=== PATIENT | female | born 1935 | race Caucasian/White ===

== ENCOUNTER 2020-04-13 22:36 | Emergency (ER) | payer MEDICARE ==
[~2020-04-13] VITALS: Ht 147.3 cm; Wt 51.3 kg
[2020-04-13 23:04] LABS: BASOPHILS ABSOLUTE AUTO 0.04 K/mm3 (0.00-0.23); BASOPHILS PERCENT AUTO 1 % (0-2); EOSINOPHILS ABSOLUTE AUTO 0.18 K/mm3 (0.00-0.68); EOSINOPHILS PERCENT AUTO 2 % (0-6); Hemoglobin 8.7 g/dL (11.5-16.0); IMMATURE GRAN ABSOLUTE AUTO 0.05 K/mm3 (0.00-0.10); IMMATURE GRAN PERCENT AUTO 1 % (0-1); LYMPHOCYTES ABSOLUTE AUTO 1.13 K/mm3 (0.84-5.20); LYMPHOCYTES PERCENT AUTO 13 % (21-46); MONOCYTES ABSOLUTE AUTO 0.89 K/mm3 (0.16-1.47); MONOCYTES PERCENT AUTO 10 % (4-13); Mean Corpuscular HGB 30.9 pg (26.0-34.0); Mean Corpuscular HGB Conc 31.1 g/dL (31.5-36.5); Mean Corpuscular Volume 99 fL (80-100); Mean Platelet Volume 8.7 fL (9.1-12.4); NEUTROPHILS PERCENT AUTO 73 % (41-73); Platelet Count 203 K/mm3 (150-400); RDW Coefficient Variation 15.8 % (11.7-14.2); RDW Standard Deviation 56.8 fL (35.1-46.3); Red Blood Cell Count 2.82 M/mm3 (3.80-5.20); White Blood Cell Count 8.59 K/mm3 (4.00-11.30)
[2020-04-13 23:23] LABS: Albumin, Blood 2.7 g/dL (3.4-5.0); Albumin/Globulin Ratio 0.7 (0.8-1.8); Bilirubin, Total 0.2 mg/dL (0.1-1.0); Bun/Creatinine Ratio 12.3 (12.0-20.0); Calcium, Blood 9.6 mg/dL (8.5-10.1); Creatinine, Blood 1.79 mg/dL (0.40-1.00); Globulin, Blood 4.1 g/dL (2.2-4.0); Potassium, Blood 3.2 mmol/L (3.5-5.5); Total Protein, Blood 6.8 g/dL (6.4-8.2)
[2020-04-14] MEDS ORDERED: DONEPEZIL HCL10 M1 PO (00:18)
[2020-04-14] MEDS ORDERED: ZOFRAN4 MG PO (00:19)
[2020-04-14] MEDS ORDERED: Ventolin/Prove6.7 GM (00:19)
[2020-04-14] MEDS ORDERED: FLOVENT HFA12 GM (00:19)
[2020-04-14] MEDS ORDERED: Rena-Vite Tabl0.8 MG PO (00:20)
[2020-04-14] MEDS ORDERED: CARVEDILOL25 MG PO (00:20)
[2020-04-14] MEDS ORDERED: ZOLOFT100 M3 PO (00:20)
[2020-04-14] MEDS ORDERED: FUROSEMIDE40 MG PO (00:20)
[2020-04-14] MEDS ORDERED: SIMV10 PO (00:20)
[2020-04-14] MEDS ORDERED: OMEPRAZOLE MAGN20 M1 PO (00:21)
[2020-04-14] MEDS ORDERED: ACET500 PO (00:22)
[2020-04-14] MEDS ORDERED: LOPE2C (00:22)
[2020-04-14] MEDS ORDERED: FELODIPINE ER10 MG PO (00:22)
[2020-04-14 00:26] LABS: Source, Urine Clean Catch
[2020-04-14 00:32] LABS: Bilirubin, Urine Neg (Neg); Blood, Urine Neg (Neg); Glucose Qualitative, Urine Neg (Neg); Ketones, Urine Neg (Neg); Leukocyte Esterase, Urine 3+ (Neg); Nitrite, Urine Neg (Neg); Protein, Urine 4+ (Neg); Urobilinogen, Urine NORM (Normal)
[2020-04-14 00:33] LABS: Appearance, Urine Clear (Clear); Color, Urine Yellow (P-Yellow)
[2020-04-14 00:38] LABS: Bacteria Many /hpf; Red Blood Cells, Urine 0-2 /hpf (0-2); Squamous Epithelial Cells Few /hpf (Few)
== END 2020-04-14 00:50 | disposition home or self-care (01) ==
LOC: ER 22:36
PROVIDERS: Physician Assistant
DX: E87.6 Hypokalemia (principal); E11.65 Type 2 diabetes mellitus with hyperglycemia; E11.22 Type 2 diabetes mellitus with diabetic chronic kidney disease; N18.6 End stage renal disease; Z88.0 Allergy status to penicillin; Z88.1 Allergy status to other antibiotic agents; Z79.899 Other long term (current) drug therapy
CPT/HCPCS: 70450; 80053; 81001; 85025; 87086; 93005; 93010; 99285-25

== ENCOUNTER 2020-05-03 18:32 | Inpatient (IN) | payer MEDICARE ==
[~2020-05-03] VITALS: Ht 147.3 cm; Wt 53.1 kg
[~2020-05-03 18:32] MED LIST: ACET500 PO; LOPE2C
[2020-05-03 19:15] LABS: BASOPHILS ABSOLUTE AUTO 0.04 K/mm3 (0.00-0.23); BASOPHILS PERCENT AUTO 0 % (0-2); EOSINOPHILS ABSOLUTE AUTO 0.17 K/mm3 (0.00-0.68); EOSINOPHILS PERCENT AUTO 2 % (0-6); Hematocrit 28.6 % (33.0-51.0); Hemoglobin 8.9 g/dL (11.5-16.0); IMMATURE GRAN ABSOLUTE AUTO 0.07 K/mm3 (0.00-0.10); IMMATURE GRAN PERCENT AUTO 1 % (0-1); LYMPHOCYTES ABSOLUTE AUTO 0.97 K/mm3 (0.84-5.20); LYMPHOCYTES PERCENT AUTO 9 % (21-46); MONOCYTES ABSOLUTE AUTO 0.87 K/mm3 (0.16-1.47); MONOCYTES PERCENT AUTO 8 % (4-13); Mean Corpuscular HGB 30.7 pg (26.0-34.0); Mean Corpuscular HGB Conc 31.1 g/dL (31.5-36.5); Mean Corpuscular Volume 99 fL (80-100); Mean Platelet Volume 9.1 fL (9.1-12.4); NEUTROPHILS ABSOLUTE AUTO 8.61 K/mm3 (1.96-9.15); NEUTROPHILS PERCENT AUTO 80 % (41-73); Platelet Count 232 K/mm3 (150-400); RDW Coefficient Variation 14.4 % (11.7-14.2); RDW Standard Deviation 52.2 fL (35.1-46.3); White Blood Cell Count 10.73 K/mm3 (4.00-11.30)
[2020-05-03 19:30] LABS: Albumin/Globulin Ratio 0.8 (0.8-1.8); Bilirubin, Total 0.3 mg/dL (0.1-1.0); Bun/Creatinine Ratio 10.7 (12.0-20.0); Calcium, Blood 9.4 mg/dL (8.5-10.1); Creatinine, Blood 2.06 mg/dL (0.40-1.00); Potassium, Blood 3.5 mmol/L (3.5-5.5); Troponin I 0.019 ng/mL (0.000-0.040)
[2020-05-03] MEDS ORDERED: ONDA4ODT PO (19:36)
[2020-05-03] MEDS ORDERED: FUROSEMIDE40 MG PO (19:36)
[2020-05-03] MEDS ORDERED: OMEPRAZOLE MAGN20 M1 PO (19:37)
[2020-05-03] MEDS ORDERED: DONEPEZIL HCL10 M1 PO (19:38)
[2020-05-03] MEDS ORDERED: Ventolin/Prove6.7 GM INH (19:38)
[2020-05-03] MEDS ORDERED: FLOVENT HFA12 GM INH (19:39)
[2020-05-03] MEDS ORDERED: Rena-Vite Tabl0.8 MG PO (19:40)
[2020-05-03] MEDS ORDERED: CARVEDILOL25 MG PO (19:40)
[2020-05-03] MEDS ORDERED: Simvastatin10 MG PO (19:40)
[2020-05-03] MEDS ORDERED: SERT100 PO (19:41)
[2020-05-03] MEDS ORDERED: FELODIPINE ER5 MG PO (20:48)
[2020-05-03] MEDS ORDERED: FISH OIL 1,2001 EAC7 PO (20:49)
[2020-05-03] MEDS ORDERED: FLONASE ALLERG9.9 ML (20:50)
[2020-05-03] MEDS ORDERED: LATA.005SO BOTHEYES (20:50)
[2020-05-03] MEDS ORDERED: DORZOLAMIDE 2%10 M1 BOTHEYES (20:52)
[2020-05-03] MEDS ORDERED: BRIMONIDINE EYE DROP BOTHEYES (20:53)
[2020-05-04 02:55] LABS: Hemoglobin 8.2 g/dL (11.5-16.0); Mean Corpuscular HGB 30.9 pg (26.0-34.0); Mean Corpuscular HGB Conc 31.5 g/dL (31.5-36.5); Mean Corpuscular Volume 98 fL (80-100); Mean Platelet Volume 8.5 fL (9.1-12.4); Platelet Count 193 K/mm3 (150-400); RDW Coefficient Variation 14.3 % (11.7-14.2); RDW Standard Deviation 51.4 fL (35.1-46.3); Red Blood Cell Count 2.65 M/mm3 (3.80-5.20); White Blood Cell Count 7.51 K/mm3 (4.00-11.30)
[2020-05-04 03:13] LABS: Bun/Creatinine Ratio 10.4 (12.0-20.0); Calcium, Blood 9.6 mg/dL (8.5-10.1); Creatinine, Blood 2.69 mg/dL (0.40-1.00); Potassium, Blood 3.5 mmol/L (3.5-5.5); Troponin I 0.017 ng/mL (0.000-0.040)
--- NOTE | 2020-05-04 06:10 | NUR ---
SHIFT SUMMARY PT RESTED MOST OF NIGHT AFTER BEING ADMITTED TO PCU ROOM. ALERT AND ORIENTED - FAMILY INSISTED ON STAYING WITH AUNT. SHE STATES SHE IS HER CAREGIVER. TELE - NSR. SATS >90% ON 2LNC. DOES PRODUCE SOME URINE - MINIMAL VOIDS. NO BM. VERY WEAK , NEEDS 1-2 PERSON ASSIST. NEEDS ECHO TODAY. VSS. CALL LIGHT WITHIN REACH, BED IN LOWEST POSITION. WILL CONTINUE TO MONITOR.
[2020-05-04 09:25] LABS: Influenza A, PCR Negative (NEGATIVE); Influenza B, PCR Negative (NEGATIVE); Resp Syncytial Virus, PCR Negative (NEGATIVE); SARS-Cov-2 (COVID-19) PCR, MMC Negative (NEGATIVE)
--- NOTE | 2020-05-04 11:50 | NUR ---
ASSUMED CARE OF PT THIS AM AFTER RECEIVING REPORT FROM DOMINIC BENDER. PT A&OX4, RESP EVEN AND UNLABORED, OXGYEN FLOW AT 2L/MIN VIA NC. PT IN DIALYSIS AT THIS TIME.
--- NOTE | 2020-05-04 17:30 | NUR ---
SUMMARY PT SITTING UP IN BED VISITING WITH HER NIECE/CAREGIVER, PT TRANSFERRED UP FROM PCU THIS AFTERNOON, ORIENTED PT TO ROOM AND CALL SYSTEM, PT AND FAMILY HOPEFUL TO DC HOME SOON, VSS, NO COMPLAINTS WILL CONT TO MONITOR
--- NOTE | 2020-05-04 19:19 | NUR ---
Echo shows EF 65%. PT up to bathroom with 1 assist FWW, GB. Oxygen 2 l NC. Niece who lives with PT & provides care present & PT will go home on DC with Niece. PT on outpt hemodialysis 3 x week & due to holiday schedule changed last week. Has lt arm AV fistula.
--- NOTE | 2020-05-05 05:35 | NUR ---
85 year old Female with Niece who is caregiver at bedside & is supportive. PT has hemodialysis 3 times week per 8 months who became SOB & needed oxygen to resolve. Cardiac workup completed & cariopul rehab order exsists. No home oxygen ordered currently on 1 l nc. Up to bathroom several times with 1 assist fww. Tolerating diet & activity, dc home with caregiver when cleared.
--- NOTE | 2020-05-05 17:04 | NUR ---
SUMMARY PT SITTING UP IN THE CHAIR AT THE BEDSIDE, PT DID NOT HAVE DIALYSIS TODAY, HAS BEEN UP TO WORK WITH THERAPY AND HAS BEEN IN THE SHOWER, KOBY HAS STAYED AT THE BEDSIDE FOR MOST OF THE DAY, PT HAS BEEN PLEASANT AND COOPERATIVE WITH CARE, PLAN TO HAVE DIALYSIS TOMORROW AND POSSIBLY DC HOME, VSS, NO ACUTE CHANGES, WILL CONT TO MONITOR
--- NOTE | 2020-05-06 03:21 | NUR ---
85 year old Patient with SOB & CO weakness & fatigue with dialysis. She has only been on dialysis for around 8 months per Family report. PT has no home oxygen use on room air until co SOB, & she returned to 1 l NC with good relief. She has had multiple bowel movments last 24 hours not diarrhea. Contient of bowel & bladder asks for assist with toileting. Amb into bathroom with minimal assist, On dialysis 3 times weekly to have dialysis today & Dc home with assist. Niece at bedside is PT's Caregiver. BP elevated after activity, better after rest. CO nausea with oral zofran helpful to relieve.
[2020-05-06 06:03] LABS: Albumin, Blood 2.6 g/dL (3.4-5.0); Anion Gap 4 mmol/L (6-16); Blood Urea Nitrogen 29 mg/dL (8-24); Bun/Creatinine Ratio 7.2 (12.0-20.0); CO2, Blood 35 mmol/L (21-32); Calcium, Blood 9.8 mg/dL (8.5-10.1); Chloride, Blood 99 mmol/L (98-108); Creatinine, Blood 4.02 mg/dL (0.40-1.00); Glomerular Filtration Rate 11 (60-); Glucose, Blood 103 mg/dL (70-99); Phosphorus, Blood 4.1 mg/dL (2.5-4.9); Potassium, Blood 3.9 mmol/L (3.5-5.5); Sodium, Blood 138 mmol/L (136-145)
[2020-05-06] MEDS ORDERED: Rena-Vite Tabl0.8 MG PO (12:11)
[2020-05-06] MEDS ORDERED: SIMV10 PO (12:12)
--- NOTE | 2020-05-06 15:35 | NUR ---
DISCHARGED HOME WITH MUSA GAINES. ALL QUESTIONS ANSWERED. F/U WITH AUDIE CONFIRMED AT DIALYSIS CLINIC. PCP TELE HEALTH APPT MADE FOR 05/14, PER LIANA. ALL PERSONAL BELONGINGS IN PATIENT POSSESSION. RECIEVED PORTABLE OXYGEN TANK AND DEMONSTRATED USE. LIANA VERBALIZED UNDERSTANDING FOR OXYGEN USE AND SAFETY. WRITTEN OXYGEN INSTRUCTIONS ALSO PROVIDED. D/C AT 0073.
== END 2020-05-06 15:42 | disposition home or self-care (01) | DRG 291 ==
LOC: ER 18:32 → PCU 18:33 → MEDS 05-04 16:42
PROVIDERS: Internal Medicine; Student in an Organized Health Care Education/Training Program; ADMIT Internal Medicine
PROC: 5A1D70Z Performance of Urinary Filtration, Intermittent, Less than 6 Hours Per Day (ICD-10-PCS; principal; 2020-05-04)
PROC: 5A1D70Z Performance of Urinary Filtration, Intermittent, Less than 6 Hours Per Day (ICD-10-PCS; 2020-05-06)
DX: I13.2 Hypertensive heart and chronic kidney disease with heart failure and with stage 5 chronic kidney disease, or end stage renal disease (principal); J96.01 Acute respiratory failure with hypoxia; N18.6 End stage renal disease; I50.33 Acute on chronic diastolic (congestive) heart failure; Z99.2 Dependence on renal dialysis; J44.9 Chronic obstructive pulmonary disease, unspecified; Z87.891 Personal history of nicotine dependence; E78.5 Hyperlipidemia, unspecified; F03.90 Unspecified dementia, unspecified severity, without behavioral disturbance, psychotic disturbance, mood disturbance, and anxiety; H40.9 Unspecified glaucoma; F32.9 Major depressive disorder, single episode, unspecified
CPT/HCPCS: 0241U; 36415; 71045; 80048; 80053; 80069; 83690; 83880; 84145; 84484; 85025; 85027; 93005; 93010; 93306; 94640; 94664; 94667; 94760; 94761; 96374; 97116; 97161; 97165; 97535; 98960; 99285-25; A9270; A9270-GY; J0881; J1644; J1940

== ENCOUNTER → 2020-06-23 | Outpatient (CLI) | payer MEDICARE ==
[~2020-06-23] MED LIST changes: +ACET325 PO; +ALPHAGAN P5 ML BOTHEYES; +B-COMPLEX WITH1 EAC2 PO; +BUSPIRONE HCL10 M2 PO; +CARVEDILOL25 MG PO; +CEPH500 PO; +DONEPEZIL HCL10 M1 PO; +DORZOLAMIDE 2%10 M3 BOTHEYES; +FELODIPINE ER5 MG PO; +FISH OIL 1,2001 EAC7 PO; +FLONASE ALLERG9.9 ML; +FLOVENT HFA12 GM INH; +FUROSEMIDE40 MG PO; +LATA.005SO BOTHEYES; +LOPE2C PO; +MIDO5 PO; +OMEPRAZOLE MAGN20 M1 PO; +ONDA4ODT PO; +Rena-Vite Tabl0.8 MG PO; +SERT100 PO; +SIMV10 PO; +Simvastatin10 MG PO; +Ventolin/Prove6.7 GM INH
[2020-06-23 16:28] LABS: Appearance, Urine Hazy (Clear); Bilirubin, Urine Neg (Neg); Blood, Urine 2+ (Neg); Color, Urine Yellow (P-Yellow); Glucose Qualitative, Urine Neg (Neg); Ketones, Urine Neg (Neg); Leukocyte Esterase, Urine 3+ (Neg); Nitrite, Urine Neg (Neg); Protein, Urine 4+ (Neg); Specific Gravity, Urine 1.015 (1.003-1.022); Urobilinogen, Urine NORM (Normal)
[2020-06-23 16:34] LABS: White Blood Cells, Urine TNTC /hpf (0-5)
[2020-06-23 16:35] LABS: Bacteria Mod /hpf; Squamous Epithelial Cells Few /hpf (Few); Transitional Epithelial Cells Few /hpf (0-Rare)
== END ==
LOC: LAB 16:21 → LAB SHORT 16:21
PROVIDERS: Internal Medicine
DX: N39.0 Urinary tract infection, site not specified (principal)
CPT/HCPCS: 81001; 87086

== ENCOUNTER 2020-06-24 11:39 | Emergency (ER) | payer MEDICARE ==
[~2020-06-24] VITALS: Ht 152.4 cm; Wt 59.0 kg
[~2020-06-24 11:39] MED LIST changes: -ACET325 PO; -ALPHAGAN P5 ML BOTHEYES; -B-COMPLEX WITH1 EAC2 PO; -BUSPIRONE HCL10 M2 PO; -CARVEDILOL25 MG PO; -CEPH500 PO; -DONEPEZIL HCL10 M1 PO; -DORZOLAMIDE 2%10 M3 BOTHEYES; -FELODIPINE ER5 MG PO; -FISH OIL 1,2001 EAC7 PO; -FLOVENT HFA12 GM INH; -FUROSEMIDE40 MG PO; -LATA.005SO BOTHEYES; -LOPE2C PO; -MIDO5 PO; -OMEPRAZOLE MAGN20 M1 PO; -ONDA4ODT PO; -SERT100 PO; -Simvastatin10 MG PO; -Ventolin/Prove6.7 GM INH
[2020-06-24 12:30] LABS: Calcium, Ionized (POC) 1.09 mmol/L (1.10-1.46); Chloride (POC) 96 mmol/L (98-108); Creatinine (POC) 4.3 mg/dL (0.6-1.0); Glucose (ISTAT POC) 135 mg/dL (70-99); Hemoglobin (POC) 10.5 g/dL (12.0-16.0); Potassium (POC) 4.6 mmol/L (3.5-5.5); Sodium (POC) 134 mmol/L (135-148); Total CO2 (POC) 32 mmol/L (21-32)
[2020-08-21] MEDS ORDERED: BUSPIRONE HCL10 M2 PO (19:50)
[2020-08-21] MEDS ORDERED: SERT100 PO (19:51)
[2020-08-21] MEDS ORDERED: FELODIPINE ER5 MG PO (19:53)
[2020-08-21] MEDS ORDERED: OMEPRAZOLE MAGN20 M1 PO (20:06)
[2020-08-21] MEDS ORDERED: FUROSEMIDE40 MG PO (20:06)
[2020-08-21] MEDS ORDERED: Rena-Vite Tabl0.8 MG PO (20:07)
[2020-08-21] MEDS ORDERED: DONEPEZIL HCL10 M1 PO (20:07)
[2020-08-21] MEDS ORDERED: Simvastatin10 MG PO (20:08)
[2020-08-21] MEDS ORDERED: CARVEDILOL25 MG PO (20:08)
[2020-08-21] MEDS ORDERED: FLOVENT HFA12 GM INH (20:08)
[2020-08-21] MEDS ORDERED: Ventolin/Prove6.7 GM INH (20:09)
[2020-08-21] MEDS ORDERED: FISH OIL 1,2001 EAC7 PO (21:17)
[2020-08-21] MEDS ORDERED: LATA.005SO BOTHEYES (21:18)
[2020-08-21] MEDS ORDERED: ALPHAGAN P5 ML BOTHEYES (21:18)
[2020-08-21] MEDS ORDERED: DORZOLAMIDE 2%10 M3 BOTHEYES (21:18)
[2020-08-21] MEDS ORDERED: ONDA4ODT PO (21:21)
[2020-08-27] MEDS ORDERED: ACET325 PO (17:36)
[2020-08-27] MEDS ORDERED: B-COMPLEX WITH1 EAC2 PO (17:36)
[2020-08-27] MEDS ORDERED: LOPE2C PO (17:37)
[2020-08-27] MEDS ORDERED: MIDO5 PO (17:37)
[2020-08-27] MEDS ORDERED: CEPH500 PO (17:38)
== END 2020-06-24 13:55 | disposition home or self-care (01) ==
LOC: ER 11:39
PROVIDERS: Emergency Medicine
DX: I13.2 Hypertensive heart and chronic kidney disease with heart failure and with stage 5 chronic kidney disease, or end stage renal disease (principal); N18.6 End stage renal disease; I50.9 Heart failure, unspecified; Z99.2 Dependence on renal dialysis; J44.9 Chronic obstructive pulmonary disease, unspecified; F32.9 Major depressive disorder, single episode, unspecified; E78.5 Hyperlipidemia, unspecified; K21.9 Gastro-esophageal reflux disease without esophagitis; Z87.891 Personal history of nicotine dependence; Z79.899 Other long term (current) drug therapy; Z88.0 Allergy status to penicillin; Z91.012 Allergy to eggs; Z88.8 Allergy status to other drugs, medicaments and biological substances; Z91.018 Allergy to other foods
CPT/HCPCS: 71045; 80047; 85014; 93005; 93010; 99285-25

== ENCOUNTER 2020-08-19 20:17 | Emergency (ER) | payer MEDICARE ==
[~2020-08-19] VITALS: Ht 162.6 cm; Wt 68.0 kg
== END 2020-08-19 23:32 | disposition home or self-care (01) ==
LOC: ER 20:17
DX: E87.6 Hypokalemia (principal); Z79.899 Other long term (current) drug therapy
CPT/HCPCS: 36415; 71045; 80053; 81001; 85025; 87086; 93005; 93010; 99285-25; A9270; P9612